=== PATIENT | female | born 1990 | race Hispanic/Latino ===

== ENCOUNTER → 2016-10-17 | Outpatient (REF) | payer OTHER ==
[~2016-10-17] MED LIST: INSUH10VL SC; INSULANT SC
== END ==
LOC: M LAB REF 13:09
PROVIDERS: ATTEND Physician Assistant
DX: J02.9 Acute pharyngitis, unspecified (principal)

== ENCOUNTER → 2018-07-29 | Outpatient (CLI) | payer OTHER ==
[2018-07-29 13:54] LABS: HEMOGLOBIN A1c 8.7 %
== END ==
LOC: M WUC 09:56
PROVIDERS: ATTEND Hospitalist
DX: E10.9 Type 1 diabetes mellitus without complications (principal)

== ENCOUNTER → 2018-11-06 | Outpatient (CLI) | payer OTHER ==
[2018-11-06 19:32] LABS: ALBUMIN 4.1 GM/DL (3.2-5.2); ALT/SGPT 20 U/L (12-78); BILIRUBIN,TOTAL 0.4 MG/DL (0.2-1.0); BLOOD UREA NITROGEN 18 MG/DL (7-18); CALCIUM LEVEL 9.5 MG/DL (8.5-10.1); CARBON DIOXIDE LEVEL 26 MEQ/L (21-32); CHLORIDE LEVEL 104 MEQ/L (98-107); CREATININE FOR GFR 0.56 MG/DL (0.55-1.30); GLOMERULAR FILTRATION RATE > 60.0 (>60); GLUCOSE, FASTING 97 MG/DL (70-100); POTASSIUM SERUM 4.8 MEQ/L (3.5-5.1); SODIUM LEVEL 137 MEQ/L (136-145); TOTAL PROTEIN 7.4 GM/DL (6.4-8.2)
[2018-11-06 19:44] LABS: CREATININE, URINE 59.4 MG/DL; MALB URINE SIEMENS < 5.0 MG/L; MAU/CREAT RATIO 8.4 MCG/MG (0.0-30.0)
[2018-11-06 20:12] LABS: HEMOGLOBIN A1c 7.7 %
== END ==
LOC: M WUC 16:14
PROVIDERS: ATTEND Hospitalist
DX: E10.9 Type 1 diabetes mellitus without complications (principal)

== ENCOUNTER → 2019-02-16 | Outpatient (CLI) | payer OTHER ==
[2019-02-20 00:06] LABS: C-PEPTIDE 0.6 ng/mL (1.1-4.4)
== END ==
LOC: M WUC 17:08
PROVIDERS: ATTEND Hospitalist
DX: E10.9 Type 1 diabetes mellitus without complications (principal)

== ENCOUNTER → 2019-07-31 | Outpatient (REF) | payer OTHER ==
[2019-07-31 18:25] LABS: ALBUMIN 4.1 GM/DL (3.2-5.2); ALT/SGPT 20 U/L (12-78); BILIRUBIN,TOTAL 0.5 MG/DL (0.2-1.0); BLOOD UREA NITROGEN 13 MG/DL (7-18); CALCIUM LEVEL 9.3 MG/DL (8.5-10.1); CARBON DIOXIDE LEVEL 27 MEQ/L (21-32); CHLORIDE LEVEL 102 MEQ/L (98-107); CREATININE FOR GFR 0.75 MG/DL (0.55-1.30); GLOMERULAR FILTRATION RATE > 60.0 (>60); GLUCOSE, FASTING 273 MG/DL (70-100); POTASSIUM SERUM 4.3 MEQ/L (3.5-5.1); SODIUM LEVEL 135 MEQ/L (136-145); TOTAL PROTEIN 7.4 GM/DL (6.4-8.2)
[2019-07-31 18:28] LABS: HEMOGLOBIN A1c 8.4 %
[2019-07-31 18:52] LABS: CREATININE, URINE 78.9 MG/DL; MALB URINE SIEMENS 10.6 MG/L; MAU/CREAT RATIO 13.4 MCG/MG (0.0-30.0)
== END ==
LOC: M SFHCPLAZ 14:56
DX: E10.9 Type 1 diabetes mellitus without complications (principal)

== ENCOUNTER → 2019-08-10 | Outpatient (REF) | payer OTHER | LOC: M SFHCPLAZ 11:50 | PROVIDERS: ATTEND Obstetrics & Gynecology | DX: Z11.9 Encounter for screening for infectious and parasitic diseases, unspecified (principal); Z01.419 Encounter for gynecological examination (general) (routine) without abnormal findings ==